=== PATIENT | male | born 1970 | race African-American/Black ===

== ENCOUNTER 2019-01-20 18:37 | Emergency (ER) | payer OTHER ==
[~2019-01-20] VITALS: Ht 165.1 cm; Wt 88.5 kg
[2019-01-20 19:01] VITALS: BP 126/82
[2019-01-20] MEDS ORDERED: NAPROXEN 500 MG TABLET PO STA (19:09)
[2019-01-20] MEDS ORDERED: HYDROcodone/APAP 5/325MG 1 TAB TABLET PO ONE (19:15)
[2019-01-20] MEDS ORDERED: diazePAM 5 MG TABLET PO ONE (19:15)
[2019-01-20] MEDS ORDERED: HYDR-3164 PO (19:18)
[2019-01-20] MEDS ORDERED: METH4TAB2 PO (19:18)
[2019-01-20] MEDS ORDERED: NAPR500T8 PO (19:18)
[2019-01-20] MEDS ORDERED: CYCL10TA2 PO (19:18)
--- NOTE | 2019-01-20 19:19 | PHYS DOC ---
Past Medical History Past Medical History: Other Additional Past Medical Histor: "IRREGULAR HEARTBEAT" Past Surgical History: Other Additional Past Surgical Histo: HERNIA Alcohol Use: Occasionally Drug Use: None Adult General Chief Complaint Chief Complaint: LOWER BACK PAIN OR INJURY HPI HPI Patient is a 48 year old male patient presenting to the ED today with mild low back pain radiating to the right hip that has been going on since yesterday after lifting boxes at work. Patient states the pain is worse when he is at work lifting boxes. He describes the pain as throbbing and intermittent. Denies any loss of bowel or bladder function. Denies any numbness or tingling to bilateral lower extremities. Review of Systems Review of Systems Constitutional: Denies fever or chills [] GI: Denies abdominal pain, nausea, vomiting, bloody stools or diarrhea [] : Denies dysuria or hematuria [] Musculoskeletal: Reports low back pain Integument: Denies rash or skin lesions [] Neurologic: Denies headache, focal weakness or sensory changes [] All other systems were reviewed and found to be within normal limits, except as documented in this note. Physical Exam Physical Exam Constitutional: Well developed, well nourished, no acute distress, non-toxic appearance. [] Skin: Warm, dry, no erythema, no rash. [] Back: Diffuse paraspinal muscle tenderness bilateral lumbar spine, no midline lumbar spine tenderness, no CVA tenderness. [] Extremities: No tenderness, no cyanosis, no clubbing, ROM intact, no edema. [] Neurologic: Alert and oriented X 3, normal motor function, normal sensory function, no focal deficits noted. [] Psychologic: Affect normal, judgement normal, mood normal. [] Current Patient Data Vital Signs Vital Signs Date Time Temp Pulse Resp B/P (MAP) Pulse Ox O2 Delivery O2 Flow Rate FiO2 01/20/19 19:01 98.2 69 16 126/82 (97) 97 Room Air 98.2 EKG EKG [] Radiology/Procedures Radiology/Procedures [] Course & Med Decision Making Course & Med Decision Making Pertinent Labs and Imaging studies reviewed. (See chart for details) This is a 40-year-old male patient who presents to the ED today with lumbosacral strain with sciatica. F/u with your doctor next week. Marianela Disclaimer Dragon Disclaimer This electronic medical record was generated, in whole or in part, using a voice recognition dictation system. Departure Departure Impression: Primary Impression: Acute lumbosacral myofascial strain Additional Impression: Sciatica of right side Disposition: 01 HOME, SELF-CARE Condition: STABLE Referrals: NO PCP (PCP) follow up next week Patient Instructions: Lumbosacral Strain, Sciatica, [id number] Additional Instructions: You have back pain with sciatica use a heating pad to your back take the medicines ordered follow up with your doctor next week Scripts Cyclobenzaprine Hcl (CYCLOBENZAPRINE HCL) 10 Mg Tablet 1 TAB PO TID, #30 TAB Prov: AGUSTÍN THACKER APRN 01/20/19 Hydrocodone/Apap 5-325 (NORCO 5-325 TABLET) 1 Each Tablet 1 TAB PO Q6HRS, #10 TAB Prov: AGUSTÍN THACKER APRN 01/20/19 Naproxen (NAPROXEN) 500 Mg Tablet.dr 1 TAB PO BID, #20 TAB 0 Refills Prov: AGUSTÍN THACKER APRN 01/20/19 Methylprednisolone (MEDROL) 4 Mg Tab.ds.pk 1 PKG PO UD, #1 PKG Prov: AGUSTÍN THACKER APRN 01/20/19 Problem Qualifiers Primary Impression: Acute lumbosacral myofascial strain Encounter type: initial encounter Qualified Codes: S39.012A - Strain of muscle, fascia and tendon of lower back, initial encounter AGUSTÍN THACKER APRN Jan 20, 2019 19:19
== END 2019-01-20 19:27 | disposition home or self-care (01) ==
LOC: ER 18:37
DX: S39.012A Strain of muscle, fascia and tendon of lower back, initial encounter (principal); M54.41 Lumbago with sciatica, right side; X50.0XXA Overexertion from strenuous movement or load, initial encounter; Y93.89 Activity, other specified; Y92.89 Other specified places as the place of occurrence of the external cause; Y99.8 Other external cause status
CPT/HCPCS: 99283; 99284

== ENCOUNTER 2019-10-23 21:59 | Emergency (ER) | payer OTHER ==
[~2019-10-23] VITALS: Ht 175.3 cm; Wt 86.0 kg
[~2019-10-23 21:59] MED LIST: CYCL10TA2 PO; HYDR-3164 PO; METH4TAB2 PO; NAPR500T8 PO
[2019-10-23 22:29] LABS: BASO % 0 % (0-3); EOS % 0 % (0-3); HEMOGLOBIN 14.4 g/dL (13.0-17.5); LYMPH # 1.2 x10^3/uL (1.0-4.8); LYMPH % 33 % (24-48); MEAN CORPUSCULAR HEMOGLOBIN 32 pg (25-35); MEAN CORPUSCULAR HGB CONC 34 g/dL (31-37); MEAN CORPUSCULAR VOLUME 94 fL (79-100); MONO # 0.3 x10^3/uL (0.0-1.1); MONO % 7 % (0-9); NEUT # 2.2 x10^3/uL (1.8-7.7); NEUT % 59 % (31-73); PLATELET COUNT 124 x10^3/uL (140-400); RED BLOOD COUNT 4.45 x10^6/uL (4.30-5.70); RED CELL DISTRIBUTION WIDTH 12.9 % (11.5-14.5); WHITE BLOOD COUNT 3.8 x10^3/uL (4.0-11.0)
[2019-10-23] MEDS ORDERED: cefTRIAXone IV Push 1 GM VIAL. IVP ONE (22:30)
[2019-10-23] MEDS ORDERED: ACETAMINOPHEN 325 MG TABLET. PO ONE (22:30)
[2019-10-23] MEDS ORDERED: IV NORMAL SALINE 1000ML BAG 1,000 ML IV ONE ×2 (22:30)
[2019-10-23 22:37] LABS: CALCIUM 8.7 mg/dL (8.5-10.1); CREATININE 1.1 mg/dL (0.7-1.3); GFR 85.7; POTASSIUM 3.6 mmol/L (3.5-5.1)
[2019-10-23 22:38] LABS: PROTHROMBIN TIME PATIENT 12.5 SEC (11.7-14.0)
[2019-10-23 22:43] LABS: ALBUMIN 3.8 g/dL (3.4-5.0); DIRECT BILIRUBIN 0.2 mg/dL (0.0-0.2); TOTAL BILIRUBIN 0.6 mg/dL (0.2-1.0); TOTAL PROTEIN 8.3 g/dL (6.4-8.2)
--- NOTE | 2019-10-23 23:16 | RAD ---
AP chest. HISTORY: Short of air AP view was taken of the chest. Lungs are free of acute infiltrates. Heart is normal in size without heart failure. There is no effusion. IMPRESSION: 1. No acute chest disease. Electronically signed by: Glenn Mauricio MD (10/23/2019 11:13 PM) [id number]
--- NOTE | 2019-10-24 00:07 | PHYS DOC ---
Past Medical History Past Medical History: Other Additional Past Medical Histor: "IRREGULAR HEARTBEAT" Past Surgical History: Other Additional Past Surgical Histo: HERNIA Smoking Status: Never Smoker Alcohol Use: Occasionally Drug Use: None General Adult EDM: Chief Complaint: FEVER HPI: HPI: 49-year-old male who denies any significant past medical history presents to the ED with complaints of fever, dry cough, nausea, nonbloody bilious vomiting or diarrhea with associated fatigue and weakness that started approximately 2 days ago. Reports he was tested for covid by the [facility] department but is unsure of the results. Came in because of his cough and headache. ROS: Denies associated melena, hematochezia, hematemesis, hemoptysis, productive cough, chest pain or pressure, leg swelling, rash, neck stiffness, blurry vision, neurologic deficits, dysuria, hematuria, flank pain or other concerning sxs. Current Medications: Current Medications Medications (Trade) Dose Ordered Sig/Toya Start Time Stop Time Status Last Admin Dose Admin Acetaminophen (Tylenol) 650 mg 1X ONCE 10/23/19 22:30 10/23/19 22:31 DC 10/23/19 22:27 650 MG Ceftriaxone Sodium (Rocephin) 1 gm 1X ONCE 10/23/19 22:30 10/23/19 22:31 DC 10/23/19 22:35 1 GM Sodium Chloride 1,000 ml @ 1,000 mls/hr 1X ONCE 10/23/19 22:30 10/23/19 23:29 DC Allergies: Allergies: Allergies Coded Allergies Type Severity Reaction Last Updated Verified No Known Drug Allergies 01/20/19 No Physical Exam: PE: Constitutional: Well developed, well nourished, no acute distress, non-toxic appearance. [] HENT: Normocephalic, atraumatic, bilateral external ears normal, oropharynx moist, no oral exudates, nose normal. [] Eyes: PERRLA, EOMI, conjunctiva normal, no discharge. [] Neck: Normal range of motion, no tenderness, supple, no stridor. [] Cardiovascular:Heart rate regular rhythm, no murmur [] Lungs & Thorax: Bilateral breath sounds clear to auscultation [] Abdomen: Bowel sounds normal, soft, no tenderness, no masses, no pulsatile masses. [] Skin: Warm, dry, no erythema, no rash. [] Back: No tenderness, no CVA tenderness. [] Extremities: No tenderness, no cyanosis, no clubbing, ROM intact, no edema. [] Neurologic: Alert and oriented X 3, normal motor function, normal sensory function, no focal deficits noted. [] Psychologic: Affect normal, judgement normal, mood normal. [] Current Patient Data: Labs: Laboratory Tests Test 10/23/19 22:15 White Blood Count 3.8 x10^3/uL (4.0-11.0) L Red Blood Count 4.45 x10^6/uL (4.30-5.70) Hemoglobin 14.4 g/dL (13.0-17.5) Hematocrit 42.0 % (39.0-53.0) Mean Corpuscular Volume 94 fL (79-100) Mean Corpuscular Hemoglobin 32 pg (25-35) Mean Corpuscular Hemoglobin Concent 34 g/dL (31-37) Red Cell Distribution Width 12.9 % (11.5-14.5) Platelet Count 124 x10^3/uL (140-400) L Neutrophils (%) (Auto) 59 % (31-73) Lymphocytes (%) (Auto) 33 % (24-48) Monocytes (%) (Auto) 7 % (0-9) Eosinophils (%) (Auto) 0 % (0-3) Basophils (%) (Auto) 0 % (0-3) Neutrophils # (Auto) 2.2 x10^3/uL (1.8-7.7) Lymphocytes # (Auto) 1.2 x10^3/uL (1.0-4.8) Monocytes # (Auto) 0.3 x10^3/uL (0.0-1.1) Eosinophils # (Auto) 0.0 x10^3/uL (0.0-0.7) Basophils # (Auto) 0.0 x10^3/uL (0.0-0.2) Prothrombin Time 12.5 SEC (11.7-14.0) Prothrombin Time INR 1.0 (0.8-1.1) Activated Partial Thromboplast Time 39 SEC (24-38) H Sodium Level 139 mmol/L (136-145) Potassium Level 3.6 mmol/L (3.5-5.1) Chloride Level 103 mmol/L (98-107) Carbon Dioxide Level 24 mmol/L (21-32) Anion Gap 12 (6-14) Blood Urea Nitrogen 11 mg/dL (8-26) Creatinine 1.1 mg/dL (0.7-1.3) Estimated GFR (Cockcroft-Gault) 85.7 Glucose Level 119 mg/dL (70-99) H Lactic Acid Level 1.1 mmol/L (0.4-2.0) Calcium Level 8.7 mg/dL (8.5-10.1) Total Bilirubin 0.6 mg/dL (0.2-1.0) Direct Bilirubin 0.2 mg/dL (0.0-0.2) Aspartate Amino Transferase (AST) 71 U/L (15-37) H Alanine Aminotransferase (ALT) 74 U/L (16-63) H Alkaline Phosphatase 79 U/L (46-116) Troponin I Quantitative < 0.017 ng/mL (0.000-0.055) Total Protein 8.3 g/dL (6.4-8.2) H Albumin 3.8 g/dL (3.4-5.0) Lipase 281 U/L (73-393) Laboratory Tests 10/23/19 22:15 Laboratory Tests 10/23/19 22:15 Vital Signs: Vital Signs Date Time Temp Pulse Resp B/P (MAP) Pulse Ox O2 Delivery O2 Flow Rate FiO2 10/23/19 22:09 102.0 87 18 144/89 (107) 100 Room Air 102.0 EKG: EKG: sinus rhythm at 85bpm, normal intervals, no twi/maverick/std Radiology/Procedures: Radiology/Procedures: IMAGING REPORT Signed PATIENT: JORDYN FRIEND ACCOUNT: [id number] : 1970 LOCATION: ER AGE: 49 SEX: M EXAM STATUS: REG ER ORD. PHYSICIAN: LUZMA ESTEVEZ DO REASON: soa PROCEDURE: PORTABLE CHEST 1V AP chest. HISTORY: Short of air AP view was taken of the chest. Lungs are free of acute infiltrates. Heart is normal in size without heart failure. There is no effusion. IMPRESSION: 1. No acute chest disease. Electronically signed by: Glenn Cavanaugh MD (10/23/2019 11:13 PM) [id number] DICTATED and SIGNED BY: GLENN CAVANAUGH MD DATE: 10/23/19 [id number] Impression: Concern for Sirs, suspect viral process, COVID on differential. Also has undifferentiated transaminitis. Patient very well-appearing in no distress, no nuchal rigidity, neurologic deficits... Life-threatening processes including meningitis, encephalitis are considered but are low suspicion given patient's history and physical exam. Encourage PMD follow-up in 24 to 48 hours. Conservative management with anti-diuretics and hydration. Strict ED return precautions given for dehydration, worsening pain or fever or neck stiffness. All of his questions were answered and he was stable at time of discharge. Course & Med Decision Making: Course & Med Decision Making Pertinent Labs and Imaging studies reviewed. (See chart for details) [] Dragon Disclaimer: Dragon Disclaimer: This electronic medical record was generated, in whole or in part, using a voice recognition dictation system. Departure Departure Impression: Primary Impression: Vomiting and diarrhea Additional Impressions: Transaminitis Suspected COVID-19 virus infection Disposition: 01 HOME, SELF-CARE Condition: STABLE Referrals: NO PCP (PCP) [facility] Patient Instructions: Nausea and Vomiting Additional Instructions: EMERGENCY DEPARTMENT GENERAL DISCHARGE INSTRUCTIONS Thank you for coming to [facility] Emergency Department (ED) today and trusting us with you care. We trust that you had a positivie experience in our Emergency Department. If you wish to speak to the department management, you may call the sirector at [phone]. YOUR FOLLOW UP INSTRUCTIONS ARE FOLLOWS: 1. Do you have a private Doctor? If you do not have a private doctir, please ask for a resource list of physicians or clinics that may be able to assist you with follow up care. 2. The Emergency Physicain has interpreted your x-rays. The X-Ray specialist will also review them. If there is a change in the findingd, you will be notified in 48 hours when at all possible. 3. A lab test or culture has been done, your results will be reviewed and you will be notified if you need a change in treatment. ADDITIONAL INSTRUCTIONS AND INFORMATION: 1. Your care today has been supervised by a physician who is specially trained in emergency care. Many problems require more than one evaluation for a complete diagnosis and treatment. We recommend that you schedule your follow up appointment as recommended to ensure complete treatment of you illness or injury. If you are unable to obtain follow up care and continue to have a problem, or if your consition worsens, we recommend that you return to the ED. 2. We are not able to safelymdetermine your condition over the phone nor are we able to give sound medical advice over the phone. For these safety reasons, if you call for medical advice we will ask you to come to the ED for further evaluation. 3. If you have any questions regarding these discharge instructions please call the ED at [phone]. SAFETY INFORMATION: In the interest of safety, wellness, and injury prevention; we encourage you to wear your sealbelt, if you smoke; quite smoking, and we encourage family to use a protective helmet for bicycling and other sporting events that present an increased risk for head injusry. IF YOUR SYMPTOMS WORSEN OR NEW SYMPTOMS DEVELOP, OR YOU HAVE CONCERNS ABOUT YOUR CONDITION; OR IF YOUR CONDITION WORSENS WHILE YOU ARE WAITING FOR YOUR FOLLOW UP APPOINTMENT; EITHER CONTACT YOUR PRIMARY CARE DOCTOR, THE PHYSICIAN WHOSE NAME AND NUMBER YOU WERE GIVEN, OR RETURN TO THE ED IMMEDIATELY. I SUSPECT YOU MAY HAVE COVID-19. It is an infection caused by a new type of coronavirus. COVID-19 will cause cold-like or mild flu symptoms in most. It can cause more severe symptoms like problems breathing in some. There is no treatment for COVID-19. The body will clear the infection over time. Self-care will help to ease discomfort. Steps to Take: Self-Care Rest as needed. Healthy habits may help you feel better. Steps include: Choose healthy foods including fruits and vegetables. Drink water throughout the day. Get plenty of sleep each night. If you smoke, try to quit. It may ease breathing. Avoid alcohol. Keep Others Healthy The virus can spread to others. Droplets are released every time you sneeze or cough. The droplets can get into the mouth, nose, or eyes of people near you and lead to infection. To lower the chances of spreading COVID-19 to others: Stay at home until your doctor has said it is safe to leave. If you tested positive this will mean staying isolated until both of the following are true: At least 7 days have passed since the start of illness. You are free of fever for at least 72 hours without the use of medicine. During this time: - Avoid public areas, events, or transportation. Do not return to work or school until your doctor has said it is safe to do so. - Call ahead if you need to go to a medical center. Let them know you may have COVID-19. It will help them guide you where to go. They may also ask you to wear a facemask when you come to the office. - If you call for emergency medical services, let them know you may have COVID- 19. While at home: - Try to avoid close contact with others. Stay about 6 feet away. - If possible, spend most of your time in a separate room from others. - Use a face mask if you will be in close contact with others such as sharing a room or vehicle. - Have someone wipe down common surfaces in the home. Use household senior wind energy consultant every day on areas like doorknobs, counters, or sinks. - Cough or sneeze into a tissue. Throw the tissue away right after use. If a tissue is not available, cough or sneeze into your elbow. - Wash your hands often. Wash them after sneezing or coughing. Use soap and water and wash for at least 20 seconds. Alcohol based hand cleaner furniture can be used if soap and water is not available. - Do not prepare food for others. Avoid sharing personal items like forks, spoons, or toothbrushes. - Avoid close contact with pets while you are sick. There is no evidence of the virus passing to pets. This is a safety step until more is known about this virus. Isolation can be frustrating. Social interaction can help. Keep in touch with friends and family through phone and tech options. You can still interact with others in your home, just keep a safe distance of about 6 feet. Follow-up: Your doctors office will check in with you to see if there are any changes in your health. You may be asked to keep track of symptoms to share with them. They will also let you know when you are clear to be in public again. Problems to Look Out For: Contact your doctor if your recovery is not going as you expect. Get emergency care if you have problems such as: - Trouble breathing - Nonstop chest pain or pressure - Changes in awareness, confusion, or problems waking - Lips or face have bluish color - Worsening of symptoms If you think you have an emergency, call for emergency medical services right away. As taken from [facility] Justicifation of Admission Dx: Justifications for Admission: Justification of Admission Dx: N/A LUZMA ESTEVEZ DO Oct 24, 2019 00:07
[2019-10-24 01:50] VITALS: BP 119/76
--- NOTE | 2019-10-26 08:58 | EKG ---
[facility] [address] [place] [address] Test Date: 2019-10-23 Test Time: 22:19:11 Pat Name: JORDYN FRIEND Department: Room: Gender: M [employer] Grade Teacher: : 1970 Requested By: LUZMA ESTEVEZ Order Number: [id number] Reading MD: Measurements Intervals [place] Rate: 85 P: 61 VA: 144 QRS: 67 QRSD: 94 T: 36 QT: 356 QTc: 429 Interpretive Statements SINUS RHYTHM NORMAL ECG RI6.02 No previous ECG available for comparison
== END 2019-10-24 01:50 | disposition home or self-care (01) ==
LOC: ER 21:59
DX: U07.1 COVID-19 (principal); R11.2 Nausea with vomiting, unspecified; R19.7 Diarrhea, unspecified; R74.0 Nonspecific elevation of levels of transaminase and lactic acid dehydrogenase [LDH]
CPT/HCPCS: 36415; 71045; 80048; 80076; 83605; 83690; 84484; 85025; 85610; 85730; 87040; 93005; 96361; 96374; 99285; C9803; J0696; J7030; U0003